=== PATIENT | female | born 2000 | race American Indian/Alaskan Native ===

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

== ENCOUNTER 2021-10-12 22:06 | Emergency (ER) | payer SELFPAY ==
[2021-10-13] MEDS ORDERED: IBUPROFEN 400 MG TAB PO ONE (01:06)
--- NOTE | 2021-10-13 04:34 | XRay Report ---
XR chest routine 2V INDICATION / CLINICAL INFORMATION: Pain - Chest pain. COMPARISON: None available. FINDINGS: SUPPORT DEVICES: None. HEART /PULMONARY VASCULATURE: No significant abnormality. LUNGS / PLEURA: No significant pulmonary or pleural abnormality. No pneumothorax. ADDITIONAL FINDINGS: No significant additional findings. IMPRESSION: 1. No acute findings. Signer Name: Julian Thorpe MD Signed: 10/13/2021 4:30 AM Workstation Name: [id number]
--- NOTE | 2021-10-13 05:14 | Emergency Department Report ---
ED General Adult HPI - General Chief complaint: Chest Pain Stated complaint: CHEST WALL PAIN Source: EMS Mode of arrival: Stretcher Limitations: No Limitations - History of Present Illness Initial comments: Patient is a 21-year-old -Martiniquais female with a history of asthma who presents to the ED with complaint of acute onset persistent anterior chest wall pain after she hit her chest wall against a metallic seat on a police vehicle after being arrested a week ago. Patient states that the pain has been persistent and especially worse with any movement or deep inhalation. Patient denies loss of consciousness, hemoptysis, nausea and vomiting, hematemesis, head or neck injuries, back pain, numbness and tingling or weakness of upper and lower extremities bilaterally, abdominal pain, shortness of breath, cough or fever and chills. MD Complaint: Anterior chest wall pain -: Sudden, week(s) (1) Location: chest Radiation: non-radiation Severity scale (0 -10): 6 Quality: aching, sharp Consistency: constant Improves with: none Worsens with: movement, other (Deep inhalation) Associated Symptoms: denies other symptoms, chest pain (Anterior chest wall pain). denies: confusion, cough, diaphoresis, fever/chills, headaches, loss of appetite, malaise, nausea/vomiting, rash, shortness of breath, syncope, weakness Treatments Prior to Arrival: none - Related Data Previous Rx's Medication Instructions Recorded Last Taken Type cephALEXin [Keflex] 500 mg PO QID #40 capsule 12/05/18 Unknown Rx traMADoL [Ultram] 50 mg PO Q6HR PRN #20 tablet 12/05/18 Unknown Rx Ibuprofen [Motrin] 400 mg PO Q8H PRN #24 tablet 10/13/21 Unknown Rx Allergies Allergy/AdvReac Type Severity Reaction Status Date / Time No Known Allergies Allergy Verified 12/05/18 11:26 ED Review of Systems ROS: Stated complaint: CHEST WALL PAIN Other details as noted in HPI Constitutional: denies: chills, fever Eyes: denies: eye pain, eye discharge, vision change ENT: denies: ear pain, throat pain Respiratory: denies: cough, shortness of breath, wheezing Cardiovascular: chest pain (Anterior chest wall pain). denies: palpitations Endocrine: no symptoms reported Gastrointestinal: denies: abdominal pain, nausea, diarrhea Genitourinary: denies: urgency, dysuria, discharge Musculoskeletal: denies: back pain, joint swelling, arthralgia Skin: denies: rash, lesions Neurological: denies: headache, weakness, paresthesias Psychiatric: denies: anxiety, depression Hematological/Lymphatic: denies: easy bleeding, easy bruising ED Past Medical Hx - Past Medical History Hx Asthma: Yes - Surgical History Additional Surgical History: tonsillectomy - Social History Smoking Status: Current Some Day Smoker Substance Use Type: None - Medications Home Medications: Home Medications Medication Instructions Recorded Confirmed Last Taken Type cephALEXin [Keflex] 500 mg PO QID #40 capsule 12/05/18 Unknown Rx traMADoL [Ultram] 50 mg PO Q6HR PRN #20 tablet 12/05/18 Unknown Rx Ibuprofen [Motrin] 400 mg PO Q8H PRN #24 tablet 10/13/21 Unknown Rx ED Physical Exam - General Limitations: No Limitations General appearance: alert, in no apparent distress - Head Head exam: Present: atraumatic, normocephalic, normal inspection - Eye Eye exam: Present: normal appearance, PERRL, EOMI Pupils: Present: normal accommodation - ENT ENT exam: Present: normal exam, normal orophraynx, mucous membranes moist, TM's normal bilaterally, normal external ear exam - Neck Neck exam: Present: normal inspection, full ROM. Absent: tenderness - Respiratory Respiratory exam: Present: normal lung sounds bilaterally, chest wall tenderness (Palpable reproducible anterior chest wall tenderness). Absent: respiratory distress, wheezes, rales, rhonchi, stridor, accessory muscle use, prolonged expiratory - Cardiovascular Cardiovascular Exam: Present: regular rate, normal rhythm, normal heart sounds. Absent: systolic murmur, diastolic murmur, rubs, gallop - GI/Abdominal GI/Abdominal exam: Present: soft, normal bowel sounds. Absent: tenderness, guarding, rebound, hyperactive bowel sounds, hypoactive bowel sounds, organomegaly, mass - Extremities Exam Extremities exam: Present: normal inspection, full ROM, normal capillary refill - Back Exam Back exam: Present: normal inspection, full ROM. Absent: tenderness, CVA tenderness (R), CVA tenderness (L), muscle spasm, paraspinal tenderness - Neurological Exam Neurological exam: Present: alert, oriented X3, CN II-XII intact, normal gait, reflexes normal - Psychiatric Psychiatric exam: Present: normal affect, normal mood - Skin Skin exam: Present: warm, dry, intact, normal color. Absent: rash ED Course Vital Signs 10/12/21 10/13/21 10/13/21 22:09 02:02 06:07 Temperature 97.9 F Pulse Rate 80 74 Respiratory 16 14 14 Rate Blood Pressure 124/80 109/53 [Left] O2 Sat by Pulse 99 100 Oximetry ED Medical Decision Making - Radiology Data Radiology results: report reviewed, image reviewed [facility] [address] [place] [address] XRay Report Signed Patient: GILDA MURRIETA MR#: [id number] : 2000 Acct:[id number] Age/Sex: 21 / F ADM Date: 10/12/21 Loc: ED Attending Dr: Ordering Physician: MALINDA SHIPLEY Date of Service: 10/13/21 Procedure(s): XR chest routine 2V Accession Number(s): [id number] cc: MALINDA SHIPLEY Fluoro Time In Minutes: XR chest routine 2V INDICATION / CLINICAL INFORMATION: Pain - Chest pain. COMPARISON: None available. FINDINGS: SUPPORT DEVICES: None. HEART /PULMONARY VASCULATURE: No significant abnormality. LUNGS / PLEURA: No significant pulmonary or pleural abnormality. No pneumothorax. ADDITIONAL FINDINGS: No significant additional findings. IMPRESSION: 1. No acute findings. Signer Name: Eddie Sue MD Signed: 10/13/2021 4:30 AM Workstation Name: [id number] Transcribed By: JS Dictated By: EDDIE SUE MD Electronically Authenticated By: EDDIE SUE MD Signed Date/Time: 10/13/21429 DD/ 8 TD/TT: Print Cancel - Medical Decision Making This is a 21-year-old -Martiniquais female with a history of asthma who presents to the ED with complaint of acute onset persistent anterior chest wall pain after she hit her chest wall against a metallic seat on a police vehicle after being arrested a week ago. Patient states that the pain has been persistent and especially worse with any movement or deep inhalation. In the ED, patient is alert and oriented x3 and is not in any distress. Chest x-ray showed no acute cardiopulmonary abnormalities or pneumonitis, pneumothorax, pleural effusion or any rib fractures and subluxations.. Patient was treated for pain in the ED and on reevaluation, patient's pain is well controlled with medications. On reevaluation, patient pain is well controlled medication. Patient was discharged home on medications and advised follow-up with her primary care physician in 7 to 10 days for reevaluation. Patient is advised return to the ED immediately if symptoms get worse. - Differential Diagnosis Rib fracture; costochondritis; pneumothorax; pleural effusion; contusion Critical care attestation.: If time is entered above; I have spent that time in minutes in the direct care of this critically ill patient, excluding procedure time. ED Disposition Clinical Impression: Anterior chest wall pain Contusion of chest Qualifiers: Encounter type: initial encounter Laterality: unspecified laterality Qualified Code(s): S20.219A - Contusion of unspecified front wall of thorax, initial encounter Disposition: HOME / SELF CARE / HOMELESS Is pt being admited?: No Does the pt Need Aspirin: No Condition: Stable Instructions: Chest Wall Pain, [id number], Contusion, [id number], Nonspecific Chest Pain, Adult, [id number] Additional Instructions: Chest x-ray showed no acute cardiopulmonary abnormalities or pneumonitis, pneumothorax, rib fractures or pleural effusion. Therefore you are symptoms are likely musculoskeletal following the traumatic injury of your chest wall. Therefore take pain medication as needed with food, drink plenty of fluids and follow-up with your primary care physician in 7 to 10 days for reevaluation or return to the ED immediately if symptoms get worse. Prescriptions: Ibuprofen [Motrin] 400 mg PO Q8H PRN #24 tablet PRN Reason: Pain , Severe (7-10) Referrals: [facility] [Provider Group] - 3-5 Days Time of Disposition: 05:13 Print Language: PALESTINIAN
[2021-10-13 06:09] VITALS: BP 109/53
== END 2021-10-13 06:07 | disposition home or self-care (01) ==
LOC: ED 22:06
DX: R07.89 Other chest pain (principal); F17.200 Nicotine dependence, unspecified, uncomplicated; J45.909 Unspecified asthma, uncomplicated
CPT/HCPCS: 36415; 71046; 84703; 99284